=== PATIENT | female | born 1960 | race Caucasian/White ===

== ENCOUNTER 2020-12-10 12:14 | Emergency (ER) | payer OTHER, SELFPAY ==
--- NOTE | ~2020-12-10 | XR_ITS ---
EXAMINATION: LEFT SHOULDER, LEFT HUMERUS, LEFT ELBOW AND LEFT WRIST X-RAY CLINICAL INFORMATION: Pain post fall COMPARISON: None TECHNIQUE: 3 views of the left shoulder, 2 views of the left humerus, 3 views of the left elbow and 4 views left wrist FINDINGS: Left shoulder: Bone alignment is normal. No fracture or dislocation is seen. The joint spaces are normal. Soft tissues are normal. Left humerus: Bone alignment is normal. There is a nondisplaced radial head fracture. No other fracture or dislocation is seen. Soft tissues are normal. Left elbow: There is a nondisplaced radial head fracture. No other fracture is seen. Bone alignment is normal. There is an elbow joint effusion. Left wrist: Bone alignment is normal. No fracture or dislocation is seen. The joint spaces are normal. Soft tissues are normal. XR/XR humerus LT IMPRESSION: Nondisplaced radial head fracture and elbow joint effusion. Otherwise unremarkable exams.
--- NOTE | ~2020-12-10 | XR_ITS ---
EXAMINATION: LEFT SHOULDER, LEFT HUMERUS, LEFT ELBOW AND LEFT WRIST X-RAY CLINICAL INFORMATION: Pain post fall COMPARISON: None TECHNIQUE: 3 views of the left shoulder, 2 views of the left humerus, 3 views of the left elbow and 4 views left wrist FINDINGS: Left shoulder: Bone alignment is normal. No fracture or dislocation is seen. The joint spaces are normal. Soft tissues are normal. Left humerus: Bone alignment is normal. There is a nondisplaced radial head fracture. No other fracture or dislocation is seen. Soft tissues are normal. Left elbow: There is a nondisplaced radial head fracture. No other fracture is seen. Bone alignment is normal. There is an elbow joint effusion. Left wrist: Bone alignment is normal. No fracture or dislocation is seen. The joint spaces are normal. Soft tissues are normal. XR/XR wrist LT min 3V IMPRESSION: Nondisplaced radial head fracture and elbow joint effusion. Otherwise unremarkable exams.
--- NOTE | ~2020-12-10 | XR_ITS ---
EXAMINATION: LEFT SHOULDER, LEFT HUMERUS, LEFT ELBOW AND LEFT WRIST X-RAY CLINICAL INFORMATION: Pain post fall COMPARISON: None TECHNIQUE: 3 views of the left shoulder, 2 views of the left humerus, 3 views of the left elbow and 4 views left wrist FINDINGS: Left shoulder: Bone alignment is normal. No fracture or dislocation is seen. The joint spaces are normal. Soft tissues are normal. Left humerus: Bone alignment is normal. There is a nondisplaced radial head fracture. No other fracture or dislocation is seen. Soft tissues are normal. Left elbow: There is a nondisplaced radial head fracture. No other fracture is seen. Bone alignment is normal. There is an elbow joint effusion. Left wrist: Bone alignment is normal. No fracture or dislocation is seen. The joint spaces are normal. Soft tissues are normal. XR/XR shoulder LT min 2V IMPRESSION: Nondisplaced radial head fracture and elbow joint effusion. Otherwise unremarkable exams.
--- NOTE | ~2020-12-10 | XR_ITS ---
EXAMINATION: LEFT SHOULDER, LEFT HUMERUS, LEFT ELBOW AND LEFT WRIST X-RAY CLINICAL INFORMATION: Pain post fall COMPARISON: None TECHNIQUE: 3 views of the left shoulder, 2 views of the left humerus, 3 views of the left elbow and 4 views left wrist FINDINGS: Left shoulder: Bone alignment is normal. No fracture or dislocation is seen. The joint spaces are normal. Soft tissues are normal. Left humerus: Bone alignment is normal. There is a nondisplaced radial head fracture. No other fracture or dislocation is seen. Soft tissues are normal. Left elbow: There is a nondisplaced radial head fracture. No other fracture is seen. Bone alignment is normal. There is an elbow joint effusion. Left wrist: Bone alignment is normal. No fracture or dislocation is seen. The joint spaces are normal. Soft tissues are normal. XR/XR elbow LT min 3V IMPRESSION: Nondisplaced radial head fracture and elbow joint effusion. Otherwise unremarkable exams.
[2020-12-10 12:40] VITALS: BP 139/100; PULSE 70; RESP 16; TEMP 36.4; O2SAT 95; BMI 37.8
--- NOTE | 2020-12-10 13:05 | ED_ITS ---
HPI - Extremity Problem General Chief complaint: Extremity Injury, Upper Stated complaint: fall - lt arm pain Time Seen by Provider: 12/10/20 12:29 Source: patient Mode of arrival: ambulatory Limitations: no limitations History of Present Illness HPI Narrative: 60 y/o female presenting with left arm pain s/p mechanical fall just prior to arrival. She reports tripping in a hole in the front yard of her friend's house and falling onto her left arm. She states her entire arm hurts from her upper arm down to her wrist. The pain is worse in her elbow region and is worse when bending and extending her arm. She is keeping it in a slightly bent position for comfort. She denies numbness, tingling or weakness. She did not sustain any other injuries. She did not hit her head or lose consciousness. She is not on anticoagulation. MD Complaint: extremity pain Onset (ago): minute(s) (45) Pain Consistency: constant Location: left and upper extremity Severity scale (1-10): 6 Quality: aching and sharp Radiation: proximal and distal Relieving factors: immobilization and rest Exacerbating factors: range of motion and palpation Associated symptoms: denies other symptoms Related Data Previous Rx's Medication Instructions Recorded ibuprofen 600 mg PO Q8H PRN #15 tab 12/10/20 tramadol 50 mg PO Q8H PRN #8 tab 12/10/20 Allergies Allergy/AdvReac Type Severity Reaction Status Date / Time codeine Allergy Itching Verified 12/10/20 12:49 Penicillins Allergy Rash Verified 12/10/20 12:49 aspirin AdvReac Gastrointestinal Verified 12/10/20 12:49 Upset Review of Systems Review of Systems: Constitutional: No Fever, No Chills Cardiovascular: No Chest Pain, No SOB Gastrointestinal: No Nausea, No Vomiting, No abdominal pain Musculoskeletal: + joint pain, + Myalgias Skin: No Skin Lesions, No rash Neuro: No Weakness, No Numbness, No Dizziness, No Headache Heme/Lymph: No Bruising, No Lymphadenopathy PMFSH Past Medical History Attestation statement: The following information was validated with the patient. Medical History Anxiety GERD (gastroesophageal reflux disease) High cholesterol Hypertension Surgical History (Updated 12/10/20 @ 12:46 by Darcie Wong) H/O: hysterectomy Social History Social History Smoking Status: Never smoker Use of substances other than those prescribed or required for medical reasons: No Advance Directives: No Advance Directives Information Provided: Yes Patient : No Physical Exam Vital Signs: Vital Signs: Last Vital Signs Temp 98.1 F 12/10/20 14:15 Pulse 78 12/10/20 14:15 Resp 16 12/10/20 14:15 BP 140/80 H 12/10/20 14:15 Pulse Ox 95 12/10/20 12:40 Body Mass Index 37.8 Appearance: Alert. Oriented X3. No acute distress. HEENT: normal inspection CVS: Normal heart rate and rhythm. Pulses normal. Respiratory: No respiratory distress. Skin: Skin warm and dry. Normal skin color. Normal skin turgor. No rashes. Extremities: left arm with normal inspection, in slightly bend positioning. painful extension and flexion, tenderness to both medial and lateral elbow, no crepitus, no ecchymosis, no deformity of arm or wrist. no proximal humerus tenderness, no clavicular tenderness. 2+ radial pulse. Neuro: Oriented X 3. No motor deficit. No sensory deficit. 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 XR's are pending. Elbow is tender with limited ROM concerning for fracture. Reevaluation(s) Reevaluation #1: XR showing nondisplaced radial head fracture. Placed in a posterior long arm splint for immobilization and sling for comfort. Splint in adequate position. NV intact distally. Will refer to Ortho. NSAIDs and pain meds prescribed. Stable for discharge. Discharge Plan Discharge Clinical Impression: Closed fracture of head of left radius Qualifiers: Encounter type: initial encounter Fracture alignment: nondisplaced Qualified Code(s): S52.125A - Nondisplaced fracture of head of left radius, initial encounter for closed fracture Patient Disposition: Home, Self-Care Instructions: Elbow Fracture (ED) Additional Instructions: Your x-rays today showed a nondisplaced fracture of the head of the radius bone in your lower arm. Keep the splint in place until you are evaluated by Orthopedics. Elevate your arm when possible. Ice several times per day. Take Motrin 600 mg every 6 hours for pain and inflammation. Take with food. Take Tramadol as needed for severe pain. Do not drive after taking this. Follow up with Orthopedics on Sunday. If you have worsening pain or develop numbness, tingling come back to the ER for further evaluation. Prescriptions: New ibuprofen 600 mg tablet 600 mg PO Q8H PRN (Reason: pain) Qty: 15 RF: 0 tramadol 50 mg tablet 50 mg PO Q8H PRN (Reason: pain) Qty: 8 RF: 0 Interventions: ED Discharge Assessment Last Done: 12/10/20 15:35 Discharge Date/Time: 12/10/20 15:05
[2020-12-10] MEDS: Ketorolac Tromethamine 60 MG/2 ML VIAL IM (13:45)
[2020-12-10 14:15] VITALS: BP 140/80; PULSE 78; RESP 16; TEMP 36.7
== END 2020-12-10 15:05 | disposition home or self-care (01) ==
PROVIDERS: Emergency Provider Internal Medicine; PCP Family Medicine
DX: S52.125A Nondisplaced fracture of head of left radius, initial encounter for closed fracture (principal); M79.602 Pain in left arm; W01.0XXA Fall on same level from slipping, tripping and stumbling without subsequent striking against object, initial encounter; Y93.9 Activity, unspecified; Y92.9 Unspecified place or not applicable; Y99.9 Unspecified external cause status; Z79.899 Other long term (current) drug therapy
CPT/HCPCS: 73030; 73060; 73080; 73110; 96372; 99284; J1885

== ENCOUNTER 2023-06-03 08:28 | Emergency (ER) | payer OTHER, SELFPAY ==
--- NOTE | ~2023-06-03 | CT_ITS ---
EXAMINATION: CT CERVICAL SPINE WITHOUT CONTRAST CLINICAL INFORMATION: Neck pain. Right arm pain and numbness. COMPARISON: None available. TECHNIQUE: Multidetector helical imaging acquired in the axial plane with generation of reformatted acquisitions. Limited study with motion artifacts. This CT examination was performed using dose optimization techniques as appropriate, variously including the following: *Automated exposure control *Adjustment of mA and/or kV according to patient size (this includes techniques or standardized protocols for targeted exams where dose is matched to indication/reason for exam; i.e. extremities or head) *Use of iterative reconstruction technique DLP: 632 mGy-cm FINDINGS: There is a rightward curvature of the cervical spine and a reversal of the normal cervical lordosis. No compression fractures or subluxations are visible. Significant left-sided facet arthropathy noted from the C2 through the C4 levels. C2-C3: No central canal stenosis. Exuberant left-sided facet arthropathy with [id number] left foraminal encroachment. C3-C4: Moderate to severe left-sided facet arthrosis. No significant disc pathology. Mild left foraminal narrowing. C4-C5: No central canal stenosis or significant foraminal encroachment. C5-C6: Patent central canal and neural foramina bilaterally with very mild endplate spurring. C6-C7: No significant disc pathology or central canal stenosis. Mild endplate spurring. Patent foramina. C7-T1: No central canal stenosis or foraminal narrowing. The craniovertebral junction is intact. The imaged portions of the brain demonstrate no acute abnormality. The mastoid air cells are clear. The paraspinal soft tissues appear normal. The visualized mediastinum is normal. The imaged portions of the lungs are clear. CT/CT cervical spine wo IV con IMPRESSION: Limited study with motion artifacts. Significant left-sided facet arthropathy from the C2 through the C4 levels with a rightward curvature of the cervical spine and a reversal of the normal cervical lordosis. [id number] left foraminal narrowing at the C2-C3 and C3-C4 levels. No central canal stenosis. If there is concern for underlying disc pathology, an MRI of the cervical spine would be recommended in follow-up for further assessment.
[2023-06-03 08:36] VITALS: BP 120/89; PULSE 76; RESP 18; TEMP 37.1; O2SAT 98; BMI 34.3
[2023-06-03] MEDS: Cyclobenzaprine HCl 10 MG TABLET PO (09:47)
[2023-06-03] MEDS: Ketorolac Tromethamine 15 MG/ML VIAL IM (09:48)
--- NOTE | 2023-06-03 09:51 | ED.EXTPRO ---
HPI - Extremity Problem General Chief complaint: Extremity Injury, Upper Stated complaint: Shoulder pain, numbness in hand Time Seen by Provider: 06/03/23 09:11 Source: patient Mode of arrival: ambulatory Limitations: no limitations History of Present Illness HPI Narrative: Patient is a 63-year-old female who presents to the emergency department for evaluation back pain and right arm numbness and tingling. She reports notable mid scapular pain with onset 2 weeks ago after falling asleep sitting up. She awoke with severe pain in this region. She was seen by her massage therapist, and she had some improvement in pain did not completely resolve. This times progressed she has been having intermittent numbness and tingling down the right arm into the hand. Feels pain to the right lateral neck and across the top of the shoulder. She denies any history of similar in the past. She denies any weakness to the arm. She denies any precipitating injury. She denies any further paresthesias. She is without headache, fevers, chills, neck stiffness, bladder bowel dysfunction. Related Data Previous Rx's Medication Instructions Recorded ibuprofen 600 mg tablet 600 mg PO Q8H PRN pain #15 tabs 12/10/20 tramadol 50 mg tablet 50 mg PO Q8H PRN pain #8 tabs 12/10/20 cyclobenzaprine 10 mg tablet 10 mg PO TID PRN muscle spasm #20 06/03/23 tabs Allergies Allergy/AdvReac Type Severity Reaction Status Date / Time codeine Allergy Itching Verified 06/03/23 08:41 Penicillins Allergy Rash Verified 06/03/23 08:41 aspirin AdvReac Gastrointestinal Verified 06/03/23 08:41 Upset HCTZ AdvReac Rash Uncoded 06/03/23 09:09 Review of Systems Review of Systems: Yes all other systems are reviewed and are negative PMFSH Past Medical History Attestation statement: The following information was validated with the patient. Source: old records reviewed Medical History High cholesterol Hypertension Anxiety GERD (gastroesophageal reflux disease) Surgical History H/O: hysterectomy Social History Social History Advance Directives: No Advance Directives Information Provided: No Physical Exam Vital Signs: Vital Signs: Last Vital Signs Temp 98.6 F 06/03/23 12:08 Pulse 78 06/03/23 12:08 Resp 18 06/03/23 12:08 BP 152/80 H 06/03/23 12:08 Pulse Ox 94 06/03/23 12:08 O2 Del Method Room Air 06/03/23 12:08 BMI result Body Mass Index 34.3 Appearance: Alert.?Oriented to person, place and time. No acute distress.?Normal affect. Eyes: Pupils equal, round and reactive to light.? ENT: Pharynx normal.?? Neck: Normal inspection.? Neck supple.?? No midline cervical spine tenderness, step-offs, deformities. Palpable right paraspinal muscle tenderness extending across trapezius CVS: Heart sounds normal. Normal heart rate and rhythm.? Pulses normal.?? Respiratory: No respiratory distress.? Lung sounds clear to auscultation bilaterally?? Abdomen: Soft and non-tender. Normoactive bowel sounds. Skin: Skin warm and dry.? Normal skin color.? Extremities: No extremity edema.?Full AROM to right shoulder Neuro: Moves all extremities spontaneously. Sensation intact bilaterally. CN II-XII intact. No focal neuro deficits. Ambulates with normal steady gait. Motor strength: Proximal right upper extremity 5 /5, distal right upper extremity 5 /5, proximal left upper extremity 5 /5, distal left upper extremity 5 /5, right lower extremity 5 /5, left lower extremity 5 /5.? Medications Administered Discontinued Medications Generic Name Dose Route Start Last Admin Trade Name Freq PRN Reason Stop Dose Admin Cyclobenzaprine HCl 10 mg 06/03/23 09:33 06/03/23 09:47 Cyclobenzaprine Hcl 10 Mg Tablet PO 06/03/23 09:34 10 mg ONCE ONE Administration Ketorolac Tromethamine 15 mg 06/03/23 09:33 06/03/23 09:48 Ketorolac Tromethamine 15 Mg/Ml Vial IM 06/03/23 09:34 15 mg ONCE ONE Administration Morphine Sulfate 15 mg 06/03/23 12:09 06/03/23 12:22 Morphine Sulfate Immed Release 15 Mg Tablet PO 06/03/23 12:10 15 mg ONCE ONE Administration Medical Decision Making Medical Decision Making MDM Narrative: patient is a 63-year-old female who presents emergency department for evaluation pain with numbness and tingling to the right arm as per HPI. At time my examination she is overall well-appearing, has mid scapular pain upon provocation with ranging right shoulder however full AROM is present, and no tenderness upon palpation to the shoulder joint. Notable right-sided paraspinal trapezius muscle tenderness upon palpation. extremities are neurovascularly intact distally, 2+ radial pulse bilaterally, pharmacist in charge strengths are equal bilaterally, no midline cervical spine tenderness, step-offs, deformity. Trialed management with Toradol IM and cyclobenzaprine orally, which did not relieve her pain. She was provided with morphine IR orally as well, which she states did not alleviate the pain. CT of her cervical spine reveals significant facet arthropathy interestingly on the left from C2-C4 with for foraminal narrowing. likely non-explanatory for her right-sided symptoms which we did discuss. symptoms most consistent with muscular strain and radiculopathy which I discussed with patient, At this time feel that she is stable for discharge home, recommended acetaminophen/ibuprofen, heat/ ice, and prescription for cyclobenzaprine was sent to the pharmacy. Recommend outpatient follow-up with primary care provider. Reviewed worrisome signs and symptoms that would warrant re-evaluation in the emergency department. Differential Diagnosis Differential Diagnoses: The differential diagnosis associated with the presentation includes ( cervical radiculopathy, muscular strain, herniated disc, nerve impingement. Clinically less likely VTE, vascular occlusion, ACS, CVA) Independent Interpretation I performed an independent interpretation of an: CT Scan Radiology Impression Discussion of test interpretation with radiology: I have reviewed the radiologist's reading. Radiologist Impression: CT/CT cervical spine wo IV con IMPRESSION: Limited study with motion artifacts. Significant left-sided facet arthropathy from the C2 through the C4 levels with a rightward curvature of the cervical spine and a reversal of the normal cervical lordosis. [id number] left foraminal narrowing at the C2-C3 and C3-C4 levels. No central canal stenosis. If there is concern for underlying disc pathology, an MRI of the cervical spine would be recommended in follow-up for further assessment. Independent Historian Clinical information obtained from an independent historian. History obtained from or confirmed by: Friend ( present at bedside who confirms history) External Record Review External record reviewed: Outpatient record Prescription Management I considered prescription management with: Pain Medication Discharge Plan Discharge Clinical Impression: Muscle strain, Facet arthropathy, cervical, Radiculopathy affecting upper extremity Patient Disposition: Home, Self-Care Instructions: Neck Pain (ED) Additional Instructions: You can take ibuprofen 200 mg, 3 tablets (600mg) every 6-8 hours as needed for pain, in addition to Tylenol 500 mg, 2 tablets (1,000mg) every 4-6 hours as needed for pain, but not to exceed 3 doses daily (3,000mg).? I have sent a prescription for a muscle relaxant, cyclobenzaprine/ Flexeril to your pharmacy. This medication may make you drowsy, you should not drive, drink alcohol, or work while taking this medication. Apply ice to the area for 10-15 minutes followed by heat for 10-15 minutes at least 3 times daily as discussed, the CT scan today does show evidence of significant arthritis on the left side of your neck. Please contact your primary care provider and arrange for a follow-up visit. You may return back to the emergency department with any new or worsening symptoms or concerns. Prescriptions: New cyclobenzaprine 10 mg tablet 10 mg PO TID PRN (Reason: muscle spasm) Qty: 20 0RF No Action ibuprofen 600 mg tablet 600 mg PO Q8H PRN (Reason: pain) Qty: 15 0RF tramadol 50 mg tablet 50 mg PO Q8H PRN (Reason: pain) Qty: 8 0RF Referrals: Swetha Muñoz MD [Primary Care Provider] -
[2023-06-03 12:08] VITALS: BP 152/80; PULSE 78; RESP 18; TEMP 37; O2SAT 94
[2023-06-03] MEDS: Morphine Sulfate Immed Release 15 MG TABLET PO (12:22)
== END 2023-06-03 13:40 | disposition home or self-care (01) ==
PROVIDERS: Emergency Provider Emergency Medicine Emergency Medical Services; PCP Family Medicine
DX: S29.012A Strain of muscle and tendon of back wall of thorax, initial encounter (principal); X58.XXXA Exposure to other specified factors, initial encounter; M47.892 Other spondylosis, cervical region; M54.10 Radiculopathy, site unspecified; I10 Essential (primary) hypertension; E78.5 Hyperlipidemia, unspecified; Y93.9 Activity, unspecified; Y92.9 Unspecified place or not applicable; Y99.9 Unspecified external cause status
CPT/HCPCS: 72125; 96372; 99284; J1885

== ENCOUNTER 2024-07-21 21:26 | Emergency (ER) | payer OTHER, SELFPAY ==
[2024-07-21 21:56] VITALS: BP 158/91; PULSE 101; RESP 18; TEMP 36.8; O2SAT 95; BMI 39.6
== END 2024-07-21 23:01 | disposition left against medical advice (07) ==
PROVIDERS: Emergency Provider Emergency Medicine Emergency Medical Services
DX: F41.9 Anxiety disorder, unspecified (principal); Z53.21 Procedure and treatment not carried out due to patient leaving prior to being seen by health care provider
CPT/HCPCS: 99281

== ENCOUNTER 2024-11-03 08:42 | Emergency (ER) | payer OTHER, SELFPAY ==
[2024-11-03] VITALS (7 sets, daily range): BP systolic 143–166; BP diastolic 72–97; PULSE 70–82; RESP 18–20; TEMP 36.4–36.5; O2SAT 93–96; BMI 38.4
--- NOTE | ~2024-11-03 | CT_ITS ---
EXAMINATION: CT HEAD WITHOUT IV CONTRAST HISTORY: headache. TECHNIQUE: Unenhanced helical CT of the head was performed per standard departmental protocol. Coronal and sagittal reformats of the head were also evaluated. One or more of the following techniques was used for dose reduction: Automated exposure control, adjustment of the mA and/or kV according to patient size, use of iterative reconstruction technique. DLP: 686 mGy-cm COMPARISON: There are no prior studies for comparison. FINDINGS: BRAIN: There is mild prominence of the ventricular system and cortical sulci, consistent with atrophy. Scattered periventricular and subcortical white matter hypodensities are noted which are nonspecific, but often seen in the setting of small vessel ischemic disease. There is no mass effect or midline shift. No intra- or extra-axial fluid collections are identified. SINUSES: The visualized paranasal sinuses are clear. The mastoid air cells and middle ear cavities are well pneumatized. ORBITS: The visualized orbits are unremarkable. BONES/SOFT TISSUES: The extracranial soft tissues are unremarkable. The calvarium is intact. No suspicious lytic or sclerotic lesions. CT/CT head/brain wo IV con IMPRESSION: No acute intracranial abnormality. Electronically signed by: Mariano Gamino MD 11/03/2024 10:30 AM EDT
--- NOTE | ~2024-11-03 | XR_ITS ---
EXAMINATION: XR CHEST 1 VIEW HISTORY: chest pain COMPARISON: There are no prior studies for comparison. FINDINGS: A single AP portable view of the chest performed at 9:32 AM is submitted. There is linear subsegmental atelectasis at both lung bases. There is no pleural effusion, pneumothorax, or pulmonary vascular congestion. The heart is normal in size. The bones are intact. XR/XR chest 1V IMPRESSION: Bibasilar subsegmental atelectasis. Electronically signed by: Mariano Gamino MD 11/03/2024 10:12 AM EDT
--- NOTE | 2024-11-03 09:25 | ECG_ITS ---
Test Reason : HTN Blood Pressure : */* mmHG Vent. Rate : 67 BPM Atrial Rate : 67 BPM P-R Int : 170 ms QRS Dur : 96 ms QT Int : 422 ms P-R-T Axes : 60 41 47 degrees QTcB Int : 445 ms Normal sinus rhythm Normal ECG No previous ECGs available Referred By: Lina Young Electronically Signed By: HUSSEIN WAYNE MD
--- NOTE | 2024-11-03 09:27 | ED.HA ---
HPI - Headache General Chief Complaint: Recheck/Abnormal Lab/Rx Stated Complaint: High Blood Pressure Time Seen by Provider: 11/03/24 09:09 Source: patient, family, EMS and old records reviewed Mode of arrival: EMS Limitations: no limitations History of Present Illness ED Provider: JUAN ANTONIO DEL CASTILLO Narrative: 64 yo female with PMH of longstanding HTN has been on atenolol 25mg daily and lisinopril 30mg daily along with anxiety and depression with recent med changes from paxil to zoloft that she feels is not helpful - last week was incredibly stressful at work she had an episode on Sunday of back pain into chest on R side and it was painful with deep breathes but no recent travel or procedures. She then started to have skull cap like throbbing headache and felt her vision was blurry started at rest - no n/v, no focal weakness. She took an extra dose of her atenolol 25mg so her BP went down from 190/100s to 150s on arrival and her headache has improved. No URI or fevers reported. MD elicited complaint: headache Pertinent past history: hypertension Onset (ago): day(s) (few) Onset description: gradually Location: right, left, frontal, temporal and band-like Severity: moderate Quality & Timing: throbbing, intermittent and progressively worsening Exacerbating factors: none Relieving factors: other Context: occurred at rest Associated symptoms: none Treatments prior to arrival: other (extra atenolol) Related Data Previous Rx's ?Medication ?Instructions ?Recorded ibuprofen 600 mg tablet 600 mg PO Q8H PRN pain #15 tabs 12/10/20 tramadol 50 mg tablet 50 mg PO Q8H PRN pain #8 tabs 12/10/20 cyclobenzaprine 10 mg tablet 10 mg PO TID PRN muscle spasm #20 06/03/23 tabs Allergies Allergy/AdvReac Type Severity Reaction Status Date / Time codeine Allergy Itching Verified 11/03/24 08:58 Penicillins Allergy Rash Verified 11/03/24 08:58 aspirin AdvReac Gastrointestinal Verified 11/03/24 08:58 Upset HCTZ AdvReac Rash Uncoded 07/21/24 22:01 Review of Systems Review of Systems: Constitutional : No Fever, No Chills, No Fatigue ENT/Mouth : No sore throat, No Rhinorrhea Eyes: No Eye Pain, No Swelling, No Redness Cardiovascular : No Chest Pain, No SOB, No Dyspnea on Exertion Respiratory : No Cough, No Sputum Gastrointestinal : No Nausea, No Vomiting, No Diarrhea, No abdominal Pain Genitourinary : No Dysuria, No Urinary Frequency, No Hematuria, Musculoskeletal : No joint pain, No Myalgias, No Joint Swelling Skin : No Skin Lesions, No rash Neuro : No Weakness, No Numbness, No Dizziness, positive Headache Psych : No Anxiety/Panic, No Depression Heme/Lymph: No Bruising, No Bleeding,No Lymphadenopathy Endocrine : No Polyuria, No Polydipsia All other systems reviewed and are negative [facility] Past Medical History Attestation statement: The following information was validated with the patient. Source: old records reviewed Medical History High cholesterol Hypertension Anxiety GERD (gastroesophageal reflux disease) Surgical History H/O: hysterectomy Social History Social History (Updated 11/03/24 @ 09:43 by Lina Young DO) Patient Tobacco Use Status: Tobacco use Unknown Advance Directives: No Advance Directives Information Provided: Yes Physical Exam Vital Signs: Vital Signs: Last Vital Signs Temp 97.6 F 11/03/24 08:53 Pulse 70 11/03/24 08:53 Resp 18 11/03/24 08:53 BP 157/97 H 11/03/24 08:53 Pulse Ox 96 11/03/24 08:53 O2 Del Method Room Air 11/03/24 08:53 BMI result Body Mass Index 38.4 Appearance: Alert. Oriented X3. No acute distress. Eyes: Pupils equal, round and reactive to light. ENT: Pharynx normal. Neck: Normal inspection. Neck supple. CVS: Normal heart rate and rhythm. Pulses normal. Respiratory: No respiratory distress. Breath sounds normal. Abdomen: Soft and nontender. Skin: Skin warm and dry. Normal skin color. Normal skin turgor. Extremities: No lower extremity edema. No calf ttp Neuro: Oriented X 3. No motor deficit. No sensory deficit. CN2-12 intact NIH Stroke Scale Internal: Initial- Upon Arrival Level of Consciousness: Alert Level of Consciousness Questions: Answers both questions correctly Level of Consciousness Commands: Performs both tasks correctly Best Gaze: Normal Visual: No visual loss Facial Palsy: Normal Motor Arm (Right): No drift Motor Arm (Left): No drift Motor Leg (Right): No drift Motor Leg (Left): No drift Limb Ataxia: Absent Sensory: Normal Best Language: No aphasia Dysarthia: Normal Extinction and Inattention: No abnormality Score: 0 Course Course Course Narrative: BNP 200 but no edema or CHF on cxr no signs of clinical CHF Medical Decision Making Medical Decision Making [facility] Narrative: 64 yo female with PMH of longstanding HTN, anxiety and HLD here with c/o increasing headaches and HTN but she self treated with extra atenolol - she has no neuro deficits and her headache is not consistent with SAH/[employer] infection. She also c/o atypical chest pain that has resolved at this time given symptoms I have ordered labs, CXR, EKG, CT head for mass, ddimer, trop. Her BP is already coming down. If work up negative would start her on 50mg atenolol daily Differential Diagnosis Differential Diagnoses: The differential diagnosis associated with the presentation includes tension, uncontrolled HTN, atypical chest pain, low prob VTE Admission/Observation Consideration of admission/observation: Escalation of care including admission/observation considered trop negative, EKG negative chest xray normal CT head normal ddimer negative at this time BP has trended down and no signs of end organ damage Lab Data [facility] Lab Attestation statement: I reviewed the patient's lab results. 11/03/24 09:42 11/03/24 09:42 Labs: Lab Results 11/03/24 Range/Units 09:42 WBC 7.3 (4.8-10.8) X10*3/uL RBC 4.97 (4.20-5.50) X10*6/uL Hgb 14.5 (12.0-16.0) g/dl Hct 43.2 (37.0-47.0) % MCV 86.9 (80.0-98.0) fL MCH 29.2 (27.0-33.0) pg MCHC 33.6 (31.0-35.0) g/dl RDW 12.7 (11.0-16.0) % Plt Count 206 (160-400) X10*3/uL MPV 8.5 L (9.4-12.3) fL Immature Gran % (Auto) 0.7 H (0.0-0.4) % Neut % (Auto) 77.9 H (45-73) % Lymph % (Auto) 15.0 L (20-40) % [place] % (Auto) 6.0 (2-11) % Eos % (Auto) 0.0 (0-4) % Baso % (Auto) 0.4 (0-2) % Lymph # (Auto) 1.1 L (1.2-4.9) X10*3/uL [place] # (Auto) 0.4 (0.1-1.2) X10*3/uL Eos # (Auto) 0.0 (0.0-0.4) X10*3/uL Baso # (Auto) 0.0 (0.0-0.2) X10*3/uL Abs Immat Gran (auto) 0.05 H (0.00-0.03) X10*3/uL Absolute Neuts (auto) 5.7 (2.0-8.3) x10*3/uL Absolute Nucleated RBC 0.000 (0.0-0.012) X10*3/uL Nucleated RBC % (auto) 0.0 (0.0-0.2) /100WBC D-Dimer High Sensitivty < 150 NG/ML Sodium 141 (135-145) mmol/L Potassium 4.0 (3.3-5.1) mmol/L Chloride 107 (96-108) mmol/L Carbon Dioxide 28 (22-29) mmol/L Anion Gap 10 L (12-20) BUN 13 (9-16) mg/dL Creatinine 0.67 (0.5-1.4) mg/dL Estim Creat Clear Calc 92.2 Estimated GFR > 60 Random Glucose 123 H (60-115) mg/dL Calcium 9.3 (8.4-10.2) mg/dL Magnesium 1.9 (1.6-2.6) mg/dL Total Bilirubin 0.5 (0.0-1.0) mg/dL Direct Bilirubin 0.1 (0.0-0.5) mg/dL AST 15 (5-31) U/L ALT 19 (0-31) U/L Alkaline Phosphatase 63 (39-117) U/L Troponin I High Sens < 2.7 (<3.5-17.0) ng/L B-Natriuretic Peptide 227 H (<100) pg/mL Total Protein 6.7 (6.5-8.0) g/dL Albumin 4.5 (3.5-5.0) g/dL Lipase 12 (8-78) U/L Influenza Type A (PCR) NEGATIVE (Negative) Influenza Type B (PCR) NEGATIVE (Negative) RSV RNA Qual (PCR) NEGATIVE (Negative) SARS-CoV-2 RNA (RT-PCR) NEGATIVE (Negative) Independent Interpretation I performed an independent interpretation of an: EKG, Plain X-Ray (normal ) and CT Scan (normal ) Interpretation: Rate: 67 Rhythm: NSR [place]: normal Normal P waves. Normal KURT. Normal QRS complex. ST T wave : normal no KIRSTIN qTC: 445 prior studies: no acute ischemia The study has been interpreted contemporaneously by me. . Radiology Impression Discussion of test interpretation with radiology: I have reviewed the radiologist's reading. Independent Historian Clinical information obtained from an independent historian. History obtained from or confirmed by: Spouse External Record Review External record reviewed: Outpatient record Prescription Management I considered prescription management with: Other Discharge Plan Discharge Clinical Impression: Acute tension headache, HTN (hypertension) Patient Disposition: Home, Self-Care Instructions: Acute Headache (ED), Chronic Hypertension (ED) Additional Instructions: ddimer, kidney function, liver panel, heart test troponin negative CT head no acute findings or mass Chest xray no pneumonia or fluid at this time follow up with your doctor for BP management but would start on atenolol 50mg daily check your HR and BP frequently return for any worsening symptoms or concerns. BRAIN: There is mild prominence of the ventricular system and cortical sulci, consistent with atrophy. Scattered periventricular and subcortical white matter hypodensities are noted which are nonspecific, but often seen in the setting of small vessel ischemic disease. There is no mass effect or midline shift. No intra- or extra-axial fluid collections are identified. SINUSES: The visualized paranasal sinuses are clear. The mastoid air cells and middle ear cavities are well pneumatized. ORBITS: The visualized orbits are unremarkable. BONES/SOFT TISSUES: The extracranial soft tissues are unremarkable. The calvarium is intact. No suspicious lytic or sclerotic lesions. CT/CT head/brain wo IV con IMPRESSION: No acute intracranial abnormality. Prescriptions: No Action ibuprofen 600 mg tablet 600 mg PO Q8H PRN (Reason: pain) Qty: 15 0RF tramadol 50 mg tablet 50 mg PO Q8H PRN (Reason: pain) Qty: 8 0RF cyclobenzaprine 10 mg tablet 10 mg PO TID PRN (Reason: muscle spasm) Qty: 20 0RF Referrals: Swetha Muñoz MD [Primary Care Provider] - 1 week Stand Alone Forms: Work/School Release Print Language: Slovak
--- NOTE | 2024-11-03 09:34 | PC.NURSE ---
Xray being performed at this time. Will obtain ordered labs/procedures upon completion. Patient's partner (Anna) at bedside.
--- NOTE | 2024-11-03 09:47 | PC.NURSE ---
20g IV access established to left AC. Labs drawn and sent for analysis. Awaiting results. EKG being obtained at this time, Dr. Hector mathis.
[2024-11-03 09:49] LABS: MANUAL DIFF FLAG NO
[2024-11-03 09:53] LABS: Basophils Percent Auto 0.4 % (0-2); Hematocrit 43.2 % (37.0-47.0); Hemoglobin 14.5 g/dl (12.0-16.0); Imm Gran Abs Auto 0.05 X10*3/uL (0.00-0.03); Imm Gran Pct Auto 0.7 % (0.0-0.4); Lymphocytes Absolute Auto 1.1 X10*3/uL (1.2-4.9); Mean Corpuscular HGB Conc 33.6 g/dl (31.0-35.0); Mean Corpuscular Hemoglobin 29.2 pg (27.0-33.0); Mean Corpuscular Volume 86.9 fL (80.0-98.0); Mean Platelet Volume 8.5 fL (9.4-12.3); Monocytes Absolute Auto 0.4 X10*3/uL (0.1-1.2); Neutrophils Absolute Auto 5.7 x10*3/uL (2.0-8.3); Neutrophils Percent Auto 77.9 % (45-73); Platelet Count 206 X10*3/uL (160-400); Red Blood Count 4.97 X10*6/uL (4.20-5.50); Red Cell Distribution Width 12.7 % (11.0-16.0); White Blood Count 7.3 X10*3/uL (4.8-10.8)
[2024-11-03 10:05] LABS: D Dimer High Sensitivity < 150 NG/ML
[2024-11-03 10:07] LABS: Alanine Aminotransferase 19 U/L (0-31); Albumin Level 4.5 g/dL (3.5-5.0); Alkaline Phosphatase 63 U/L (39-117); Anion Gap 10 (12-20); Aspartate Amino Transferase 15 U/L (5-31); Bilirubin Direct 0.1 mg/dL (0.0-0.5); Bilirubin Total 0.5 mg/dL (0.0-1.0); Blood Urea Nitrogen 13 mg/dL (9-16); Calcium 9.3 mg/dL (8.4-10.2); Carbon Dioxide 28 mmol/L (22-29); Chloride 107 mmol/L (96-108); Creatinine Clr Calc Pharmacy 92.2; Estimated Glomerular Filt Rate > 60; Glucose Random 123 mg/dL (60-115); Lipase 12 U/L (8-78); Magnesium 1.9 mg/dL (1.6-2.6); Sodium 141 mmol/L (135-145); Total Protein 6.7 g/dL (6.5-8.0)
[2024-11-03 10:10] LABS: B Type Natriuretic Peptide 227 pg/mL (<100)
[2024-11-03 10:11] LABS: Troponin-I High Sensitivity < 2.7 ng/L (<3.5-17.0)
[2024-11-03 10:27] LABS: Influenza A PCR NEGATIVE (Negative); Influenza B PCR NEGATIVE (Negative); Resp Syncy Virus RNA Qual PCR NEGATIVE (Negative); SARS COV2 PCR INHOUSE NEGATIVE (Negative)
== END 2024-11-03 11:02 | disposition home or self-care (01) ==
PROVIDERS: Emergency Provider Emergency Medicine; PCP Family Medicine
DX: G44.209 Tension-type headache, unspecified, not intractable (principal); R06.02 Shortness of breath; I10 Essential (primary) hypertension; Z79.899 Other long term (current) drug therapy; Z03.818 Encounter for observation for suspected exposure to other biological agents ruled out
CPT/HCPCS: 0241U; 36415; 70450; 71045; 80048; 80076; 83690; 83735; 83880; 84484; 85025; 85379; 93005; 99284

== ENCOUNTER → 2024-11-03 09:25 | Outpatient (BNV) | payer OTHER, SELFPAY | PROVIDERS: Emergency Provider Emergency Medicine; PCP Family Medicine; Visit Provider Radiology Diagnostic Radiology | DX: R51.9 Headache, unspecified (principal); J98.11 Atelectasis | CPT/HCPCS: 70450; 71045 ==

== ENCOUNTER → 2024-11-03 09:25 | Outpatient (BNV) | payer OTHER, SELFPAY | PROVIDERS: Emergency Provider Emergency Medicine; PCP Family Medicine; Visit Provider Internal Medicine Cardiovascular Disease | DX: I10 Essential (primary) hypertension (principal) | CPT/HCPCS: 93010 ==